=== PATIENT | male | born 1960 | race Caucasian/White ===

== ENCOUNTER 2019-11-02 19:17 | Emergency (ER) | payer OTHER ==
[~2019-11-02] VITALS: Ht 182.9 cm; Wt 86.2 kg
[2019-11-02 19:56] LABS: BASOPHILS ABSOLUTE AUTO 0.07 K/mm3 (0.00-0.23); BASOPHILS PERCENT AUTO 0 % (0-2); EOSINOPHILS ABSOLUTE AUTO 0.01 K/mm3 (0.00-0.68); EOSINOPHILS PERCENT AUTO 0 % (0-6); Hematocrit 43.7 % (37.0-53.0); Hemoglobin 14.7 g/dL (13.5-17.5); IMMATURE GRAN ABSOLUTE AUTO 0.07 K/mm3 (0.00-0.10); IMMATURE GRAN PERCENT AUTO 0 % (0-1); LYMPHOCYTES ABSOLUTE AUTO 1.08 K/mm3 (0.84-5.20); LYMPHOCYTES PERCENT AUTO 6 % (21-46); MONOCYTES PERCENT AUTO 7 % (4-13); Mean Corpuscular HGB 29.1 pg (26.0-34.0); Mean Corpuscular HGB Conc 33.6 g/dL (31.5-36.5); Mean Corpuscular Volume 86 fL (80-100); Mean Platelet Volume 9.6 fL (9.1-12.4); NEUTROPHILS ABSOLUTE AUTO 15.65 K/mm3 (1.96-9.15); NEUTROPHILS PERCENT AUTO 86 % (41-73); Platelet Count 267 K/mm3 (150-400); RDW Coefficient Variation 12.8 % (11.7-14.2); RDW Standard Deviation 40.7 fL (35.1-46.3); Red Blood Cell Count 5.06 M/mm3 (4.30-5.90); White Blood Cell Count 18.18 K/mm3 (4.00-11.30)
[2019-11-02 20:26] LABS: Troponin I <0.015 ng/mL (0.000-0.040)
[2019-11-02 20:27] LABS: Alanine Aminotransfer (ALT/SGP 19 U/L (12-78); Albumin, Blood 3.6 g/dL (3.4-5.0); Albumin/Globulin Ratio 0.9 (0.8-1.8); Alk Phos 97 U/L (50-136); Anion Gap 6 mmol/L (6-16); Aspartate Aminotrans (AST/SGOT 15 U/L (12-37); Bilirubin, Total 0.6 mg/dL (0.1-1.0); Blood Urea Nitrogen 12 mg/dL (8-24); CO2, Blood 25 mmol/L (21-32); Calcium, Blood 8.8 mg/dL (8.5-10.1); Chloride, Blood 107 mmol/L (98-108); Creatinine, Blood 0.92 mg/dL (0.60-1.20); Globulin, Blood 4.2 g/dL (2.2-4.0); Glomerular Filtration Rate >60 (60-); Glucose, Blood 141 mg/dL (70-99); Potassium, Blood 3.8 mmol/L (3.5-5.5); Sodium, Blood 138 mmol/L (136-145); Total Protein, Blood 7.8 g/dL (6.4-8.2)
[2019-11-02 20:35] LABS: Source, Urine Clean Catch
[2019-11-02 20:38] LABS: Bilirubin, Urine Neg (Neg); Blood, Urine Neg (Neg); Glucose Qualitative, Urine Neg (Neg); Ketones, Urine 3+ (Neg); Leukocyte Esterase, Urine Neg (Neg); Nitrite, Urine Neg (Neg); Protein, Urine 1+ (Neg); Specific Gravity, Urine 1.015 (1.003-1.022); Urobilinogen, Urine NORM (Normal); pH, Urine 6.5 (5.0-8.0)
[2019-11-02 20:49] LABS: Appearance, Urine Clear (Clear); Color, Urine Yellow (P-Yellow)
[2019-11-02] MEDS ORDERED: Zofran4 MG PO (21:47)
== END 2019-11-02 23:13 | disposition home or self-care (01) ==
LOC: ER 19:17
PROVIDERS: Physician Assistant
DX: B34.9 Viral infection, unspecified (principal)
CPT/HCPCS: 36415; 74022; 80053; 83690; 84484; 85025; 93005; 93010; 96361; 96374; 99283-25; A9270; A9270-GY; J2405; J7030

== ENCOUNTER 2020-02-18 09:26 | Day surgery (SDC) | payer OTHER ==
[~2020-02-18] VITALS: Ht 182.9 cm; Wt 87.4 kg
[~2020-02-18 09:26] MED LIST: Zofran4 MG PO
[2020-02-18] MEDS ORDERED: ZYRTEC10 M2 PO (09:47)
--- NOTE | 2020-02-18 10:21 | NUR ---
Ambulatory in Day Surgery History, Chart, Medications and Allergies reviewed before start of procedure.Patient confirms NPO status and agrees with scheduled surgery. Patient reports completing Chlorhexadine shower X2 prior to admission to hospital.Surgical site prepped with 2% Chlorhexidine cloth wipe. Patient States Post-Procedure ride home has been arranged.
--- NOTE | 2020-02-18 13:57 | NUR ---
02/18/20 1357 Lilly Burks VERIFICATIONS: EDIT CHART.
--- NOTE | 2020-02-18 14:00 | NUR ---
Discharge instructions reviewed with patient. Patient verbalizes understanding. Copy given to patient to take home. Patient up to Ambulate independently. Gait steady. Dressing to procedure site clean, dry, intact with no visible drainage, swelling, erythema or bruising noted. Patient States Post-Procedure ride home has been arranged. Discharged via wheelchair to private car for ride home.
--- NOTE | 2020-02-18 14:13 | NUR ---
1410 PT HERE TO AN/SSN 2 4 OPERATOR PT, PT MOVING WELL RX HARD COPY GIVEN TO PT FOR PAIN MEDS
== END 2020-02-18 23:21 | disposition home or self-care (01) ==
LOC: ORSCMMR 09:26 → ORD 11:00 → ORSCMMR 23:21
PROVIDERS: Surgery
PROC: 0YU54JZ Supplement Right Inguinal Region with Synthetic Substitute, Percutaneous Endoscopic Approach (ICD-10-PCS; principal; 2020-02-18 11:00)
PROC: 8E0W4CZ Robotic Assisted Procedure of Trunk Region, Percutaneous Endoscopic Approach (ICD-10-PCS; principal; 2020-02-18 11:00)
DX: K40.91 Unilateral inguinal hernia, without obstruction or gangrene, recurrent (principal)
CPT/HCPCS: 49651; S2900; C1781; J0690; J1100; J1885; J2250; J2405; J2704; J2765; J3010; J7120

== ENCOUNTER 2021-03-26 19:31 | Observation (INO) | payer OTHER ==
[~2021-03-26] VITALS: Ht 182.9 cm; Wt 86.2 kg
[~2021-03-26 19:31] MED LIST changes: +ZYRTEC10 M2 PO
[2021-03-26 19:53] LABS: BASOPHILS PERCENT AUTO 1 % (0-2); EOSINOPHILS ABSOLUTE AUTO 0.21 K/mm3 (0.00-0.68); EOSINOPHILS PERCENT AUTO 2 % (0-6); Hematocrit 43.6 % (37.0-53.0); Hemoglobin 14.6 g/dL (13.5-17.5); IMMATURE GRAN ABSOLUTE AUTO 0.04 K/mm3 (0.00-0.10); IMMATURE GRAN PERCENT AUTO 0 % (0-1); LYMPHOCYTES ABSOLUTE AUTO 3.44 K/mm3 (0.84-5.20); LYMPHOCYTES PERCENT AUTO 30 % (21-46); MONOCYTES ABSOLUTE AUTO 0.96 K/mm3 (0.16-1.47); MONOCYTES PERCENT AUTO 8 % (4-13); Mean Corpuscular HGB 29.3 pg (26.0-34.0); Mean Corpuscular HGB Conc 33.5 g/dL (31.5-36.5); Mean Corpuscular Volume 87 fL (80-100); Mean Platelet Volume 9.7 fL (9.1-12.4); NEUTROPHILS ABSOLUTE AUTO 6.93 K/mm3 (1.96-9.15); NEUTROPHILS PERCENT AUTO 59 % (41-73); Platelet Count 345 K/mm3 (150-400); RDW Standard Deviation 41.4 fL (35.1-46.3); Red Blood Cell Count 4.99 M/mm3 (4.30-5.90); White Blood Cell Count 11.68 K/mm3 (4.00-11.30)
[2021-03-26 20:15] LABS: Alanine Aminotransfer (ALT/SGP 25 U/L (12-78); Albumin, Blood 3.8 g/dL (3.4-5.0); Alk Phos 99 U/L (50-136); Anion Gap 3 mmol/L (6-16); Aspartate Aminotrans (AST/SGOT 20 U/L (12-37); Bilirubin, Total 0.3 mg/dL (0.1-1.0); Blood Urea Nitrogen 17 mg/dL (8-24); Bun/Creatinine Ratio 18.4 (12.0-20.0); CO2, Blood 32 mmol/L (21-32); Chloride, Blood 105 mmol/L (98-108); Creatinine, Blood 0.92 mg/dL (0.60-1.20); Glomerular Filtration Rate >60 (60-); Glucose, Blood 136 mg/dL (70-99); Sodium, Blood 140 mmol/L (136-145); Total Protein, Blood 7.8 g/dL (6.4-8.2); Troponin I <0.015 ng/mL (0.000-0.040)
[2021-03-27 06:41] LABS: BASOPHILS ABSOLUTE AUTO 0.02 K/mm3 (0.00-0.23); BASOPHILS PERCENT AUTO 0 % (0-2); EOSINOPHILS PERCENT AUTO 0 % (0-6); Hematocrit 40.6 % (37.0-53.0); Hemoglobin 13.6 g/dL (13.5-17.5); IMMATURE GRAN ABSOLUTE AUTO 0.08 K/mm3 (0.00-0.10); IMMATURE GRAN PERCENT AUTO 0 % (0-1); LYMPHOCYTES ABSOLUTE AUTO 0.74 K/mm3 (0.84-5.20); LYMPHOCYTES PERCENT AUTO 4 % (21-46); MONOCYTES ABSOLUTE AUTO 1.37 K/mm3 (0.16-1.47); MONOCYTES PERCENT AUTO 7 % (4-13); Mean Corpuscular HGB 29.2 pg (26.0-34.0); Mean Corpuscular HGB Conc 33.5 g/dL (31.5-36.5); Mean Corpuscular Volume 87 fL (80-100); Mean Platelet Volume 9.8 fL (9.1-12.4); NEUTROPHILS ABSOLUTE AUTO 17.58 K/mm3 (1.96-9.15); NEUTROPHILS PERCENT AUTO 89 % (41-73); Platelet Count 260 K/mm3 (150-400); RDW Coefficient Variation 13.1 % (11.7-14.2); Red Blood Cell Count 4.65 M/mm3 (4.30-5.90); White Blood Cell Count 19.79 K/mm3 (4.00-11.30)
[2021-03-27 07:11] LABS: Alanine Aminotransfer (ALT/SGP 21 U/L (12-78); Albumin, Blood 3.4 g/dL (3.4-5.0); Alk Phos 78 U/L (50-136); Anion Gap 5 mmol/L (6-16); Aspartate Aminotrans (AST/SGOT 12 U/L (12-37); Bilirubin, Total 0.8 mg/dL (0.1-1.0); Blood Urea Nitrogen 14 mg/dL (8-24); Bun/Creatinine Ratio 17.7 (12.0-20.0); CO2, Blood 25 mmol/L (21-32); Chloride, Blood 110 mmol/L (98-108); Creatinine, Blood 0.79 mg/dL (0.60-1.20); Globulin, Blood 3.5 g/dL (2.2-4.0); Glomerular Filtration Rate >60 (60-); Glucose, Blood 169 mg/dL (70-99); Potassium, Blood 4.1 mmol/L (3.5-5.5); Sodium, Blood 140 mmol/L (136-145); Total Protein, Blood 6.9 g/dL (6.4-8.2)
[2021-03-27 07:15] LABS: CPK Creatine Kinase 38 U/L (39-308); Troponin I <0.015 ng/mL (0.000-0.040)
[2021-03-27 07:40] LABS: CPK Creatine Kinase 38 U/L (39-308); Troponin I <0.015 ng/mL (0.000-0.040)
--- NOTE | 2021-03-27 11:29 | NUR ---
Echocardiogram completed.
--- NOTE | 2021-03-27 17:37 | NUR ---
ADMIT: 03/26/21 DISCHARGE: DX: Chestn Pain CC: [email or web address] JEREMIE CALL: RESIDENCE: Home CAREGIVER: Carmen Gusman, Spouse / Partner, DX: pneumonia DME: none CCM: none HOME HEALTH: none SUMMARY: 03/27/21- per chart review with Dr. Flores, pt is going to need stress test today and if this comes out ok, he could potentially discharge the pt home later tonight. -[email or web address]
--- NOTE | 2021-03-27 17:37 | NUR ---
ADMIT NOTED RECIEVED REPORT FROM EL WOODY IN ED. PT TO ROOM, IND TO BED AND UP IN ROOM. EDUCATED PT TIPPLE OPERATOR LIGHT AND FALL RISK. PT REPORTS TIGHT CHEST PAIN THAT STARTED IN LEFT SHOULDER YESTERDAY AT 1830, THEN TRAVELED TO HIS CHEST. PT CONTINUES TO HAVE CHEST PAIN, MEDCIATED WITH FENTNYL x1, PT REPORTING MINIMAL RELEIF. PT A&Ox4; CALM AND COOPERATIVE WITH CARE. PT DENIES SOB, [place] AND DIZZINESS T/O SHIFT. COMPLETED 1ST PORTION OF STRESS TEST THIS AFTERNOON, PLACED FOR SECOND PORTION TOMORROW. VSS. ON OTHER ACUTE CHANGES NOTED. WILL CONTINUE TO MONITOR UNITL REPORT GIVEN TO ONCOMING RN.
--- NOTE | 2021-03-28 03:27 | NUR ---
SHIFT SUMMARY PATIENT IS ALERT AND ORIENTED X4. INDEPENDENT IN THE ROOM. 02 SATS >94% ON RA. COMPLAINS OF MIDSTERNAL CP 8/10 AT BEGINNING OF SHIFT, MEDICATED PER EMAR, NO COMPLAINTS SINCE. PT SLEEPING. NPO @0400 FOR STRESS TEST IN AM. VSS, NO ACUTE CHANGES. CALL LIGHT IN REACH.
[2021-03-28 05:03] LABS: Magnesium, Blood 1.9 mg/dL (1.6-2.4); Phosphorus, Blood 1.4 mg/dL (2.5-4.9); Thyroid Stimulating Hormone 0.616 uIU/mL (0.360-4.800)
--- NOTE | 2021-03-28 10:03 | NUR ---
AM NOTE ASSUMED CARE OF PATIENT AT APPROX 0700. PT A&Ox4; CALM AND COOPERATIVE WITH CARE. PT RESTING IN BED, UP TO BATHROOM IND. PT DENIES CHEST PAIN THIS AM; WILL CONTINUE TO MONITOR. PT DENIES SOB, NAUSEA AND DIZZINESS. PT RECIVING MAGNESIUM AND POTASSIUM PHOSPHATE PER ORDERS. PLANS FOR SECOND PORTION OF STRESS TEST THIS AFTERNOON. VSS. NO OTHER ACUTE CHANGES NOTED DURING SHIFT. WILL CONTINUE TO MONITOR.
--- NOTE | 2021-03-28 15:48 | NUR ---
Update 03/28/2021: Pt. scheduled for a stress test at 3pm today. Likely to discharge if stress test goes well. Discussed discharge planning with pt. He has transportation from family, no concerns regarding discharge. Family will assist in picking up medications if indicated. He is scheduled for a hospital F/U 04/03/21 at 4:20 PM. Pt. given discharge letter with appointment info on it. He is agreeable to contacting [facility] triage line if he has any concerns or questions post discharge.
[2021-03-28] MEDS ORDERED: AZIT500 PO (18:11)
[2021-03-28] MEDS ORDERED: CEFP200 PO (18:12)
[2021-03-28] MEDS ORDERED: COLCRYS0.6 M1 PO (18:14)
[2021-03-28] MEDS ORDERED: IBUP200 PO (18:20)
--- NOTE | 2021-03-28 19:08 | NUR ---
DISCHARGE SUMMARY NO ACUTE CHANGES DURING SHIFT. PT REPORTS CHEST PAIN, MEDICATED WITH TORADOL WITH POSITIVE RESULTS. STRESS TEST COMPLETED DURING SHIFT. VSS. DR CARRENO NOTIFIED OF STRESS TEST RESULTS, PLANS FOR DISCHARGE HOME. CLARIFIED ORDERS FOR NEWLY ORDER IV/PO ANTIOBIOTICS, OK TO HOLD AND DISCHARGE TO TAKE HOME PRESCRIPTION. PT EDUCATED ON DISCHARGE INSTRUCTIONS, FOLLOW UP APPOINTMENT AND MEDICATIONS. PRESCRIPTIONS FAXED TO [facility] PER PT REQUEST. PT LEFT ROOM VIA WHEELCHAIR AT 1850.
== END 2021-03-28 18:50 | disposition home or self-care (01) ==
LOC: ER 19:31 → ERHOLD 19:32 → PCU 03-27 12:46
PROVIDERS: Internal Medicine; Physician Assistant; ADMIT Internal Medicine
DX: R07.89 Other chest pain (principal); R61 Generalized hyperhidrosis; D72.829 Elevated white blood cell count, unspecified; J98.11 Atelectasis; R91.1 Solitary pulmonary nodule; R06.02 Shortness of breath; I34.0 Nonrheumatic mitral (valve) insufficiency; I49.1 Atrial premature depolarization
CPT/HCPCS: 36415; 71045; 71275; 78452; 80053; 82550; 83690; 83735; 83880; 84100; 84145; 84443; 84484; 85025; 93005; 93010; 93017; 93306; 96361; 96372; 96374; 96375; 96376; 99285-25; A9270; A9500; G0378; J0706; J1650; J1885; J2405; J2785; J3010; J3475; J7030; J7060; Q9967